=== PATIENT | female | born 1965 | race Caucasian/White ===

== ENCOUNTER → 2018-01-24 09:10 | Outpatient (CLI) | payer MEDICAID, SELFPAY ==
--- NOTE | 2018-01-24 09:23 | MRI_ITS ---
MR Spine Lumbar W/O Contrast INDICATION: LOW BACK PAIN, sharp shooting pain into legs and feet bilaterally, no relief with therapy COMPARISON: None TECHNIQUE: Multiplanar multisequence MRI examination of the lumbar spine without contrast FINDINGS: There is minimal anterolisthesis of L4 on L5, otherwise normal lumbar lordosis. Height of the vertebral bodies is preserved. Large hemangioma is present in T11. Conus is located at L1. There is normal distribution of the nerve roots of the cauda equina. T12-L1, L1-2, and L2-3 levels are unremarkable. L3-4 level demonstrates minimal disc bulging. No significant spinal canal or neuroforaminal narrowing. L4-L5 level demonstrates mild anterolisthesis with severe bilateral facet joint arthropathy/hypertrophy and thickening of the ligamentum flavum. Small amount of fluid is noted in the left facet joint. No evidence of bone marrow edema. There is mild spinal canal and bilateral neuroforaminal narrowing. L5-S1 level demonstrates degenerative disc disease and endplate degenerative changes with bilateral foraminal disc osteophyte formation resulting in mild bilateral foraminal narrowing. Spinal canal is not significantly narrowed. MRI/Spine Lumbar (Routine) IMPRESSION: Mild anterolisthesis of L4 on L5 with severe bilateral facet joint arthropathy/hypertrophy and mild spinal canal and bilateral neuroforaminal narrowing. L5-S1 degenerative disc disease and endplate degenerative changes with mild bilateral neural foraminal narrowing. at 1832 Reported and signed by: Carrie San MD Electronically Signed: Carrie San MD at 17:30 EST Tel , Service support ,
== END ==
PROVIDERS: Visit Provider Anesthesiology Pain Medicine
DX: M54.9 Dorsalgia, unspecified (principal); M79.604 Pain in right leg
CPT/HCPCS: 72148

== ENCOUNTER 2018-04-04 11:49 | Day surgery (SDC) | payer MEDICAID, SELFPAY ==
[2018-04-04 12:18] VITALS: BP 114/62; PULSE 58; RESP 16; TEMP 36.2; O2SAT 100; BMI 25.7
--- NOTE | 2018-04-04 14:35 | RAD_ITS ---
STUDY: X-RAY - LUMBAR SPINE REASON FOR EXAM: Female, 53 years old. Lumbar epidural TECHNIQUE: 1 fluoroscopic view view(s) of the lumbar spine were obtained. COMPARISON: None FINDINGS: Fluoroscopy was provided for a lumbar epidural procedure. RAD/Spine 1 View Any Level IMPRESSION: As above. Electronically Signed: Anish Crespo, at 19:58 EDT Tel , Service support ,
[2018-04-04] MEDS: Triamcinolone Acetonide 40 MG/ML Vial ×2 (14:50)
[2018-04-04 14:56] VITALS: BP 100/54; BP 114/62; PULSE 55; RESP 16; TEMP 36.2; O2SAT 95
[2018-04-04 15:00] VITALS: BP 101/56; BP 114/62; PULSE 55; RESP 16; O2SAT 96
[2018-04-04 15:05] VITALS: BP 111/61; BP 114/62; PULSE 55; RESP 16; O2SAT 97
[2018-04-04 15:12] VITALS: BP 114/62; BP 114/63; PULSE 55; RESP 16; TEMP 36.9; O2SAT 97
[2018-04-04 15:32] VITALS: BP 114/62
== END 2018-04-04 15:34 | disposition home or self-care (01) ==
LOC: SDC 11:50 → AC 11:57
PROVIDERS: Visit Provider Anesthesiology Pain Medicine
PROC: 3E0S3BZ Introduction of Anesthetic Agent into Epidural Space, Percutaneous Approach (ICD-10-PCS; CPT 62322; principal; 2018-04-04 13:55)
DX: M51.16 Intervertebral disc disorders with radiculopathy, lumbar region (principal); Z79.899 Other long term (current) drug therapy; Z79.82 Long term (current) use of aspirin; I25.2 Old myocardial infarction; I10 Essential (primary) hypertension; Z95.1 Presence of aortocoronary bypass graft; F17.200 Nicotine dependence, unspecified, uncomplicated; K21.9 Gastro-esophageal reflux disease without esophagitis; F41.9 Anxiety disorder, unspecified; F32.9 Major depressive disorder, single episode, unspecified; E07.9 Disorder of thyroid, unspecified
CPT/HCPCS: 62323; 64483; 72020; J7120

== ENCOUNTER → 2022-07-06 | Outpatient (CLI) | payer MEDICARE, MEDICAID, SELFPAY ==
--- NOTE | 2022-07-06 10:42 | MRI_ITS ---
STUDY: MRI LUMBAR SPINE WITHOUT CONTRAST REASON FOR EXAM: Female, 57 years old. RADICULOPATHY LUMBAR SPINE TECHNIQUE: Standardized fat and water weighted pulse sequences were obtained in the sagittal and axial planes. COMPARISON: MRI of the lumbar spine dated January 24, 2018 FINDINGS: Normal lumbar lordosis. There is no substantial scoliosis. Normal conus medullaris that terminates at the L1 level. L1-2: Normal endplates. Mild disc desiccation. Normal disc height and morphology. Normal bilateral facet joints. Normal central canal and bilateral lateral recesses. Normal bilateral intervertebral neural foramina. L2-3: Normal endplates. Mild disc desiccation. Normal disc height and morphology. Normal bilateral facet joints. Normal central canal and bilateral lateral recesses. Normal bilateral intervertebral neural foramina. L3-4: Normal endplates. Diffuse disc desiccation with mild posterior disc space narrowing and minimal annular bulging. Normal bilateral facet joints. Normal central canal and bilateral lateral recesses. Normal bilateral intervertebral neural foramina. L4-5: Normal endplates. Mild disc space narrowing with diffuse disc desiccation and minimal posterior annular bulging. Moderate facet joint hypertrophy and fluid distention contribute into mild central canal stenosis. Normal bilateral intervertebral neural foramina. Slight anterolisthesis of L4 and L5 of 2 to 3 mm. L5-S1: Moderate disc space narrowing and MODIC endplate degenerative signal. Diffuse disc spur complex. Normal bilateral facet joints. Normal central canal and bilateral lateral recesses. Normal bilateral intervertebral neural foramina. Normal visualized sacral ala. There is mild paraspinal muscular atrophy. Small sacral Tarlov cyst noted which is of no clinical significance. MRI/Spine Lumbar (Routine) IMPRESSION: 1. Multilevel degenerative changes, as described above. 2. Mild central canal stenosis at L4-L5. Electronically Signed: Bishop Jung MD at 11:56 EDT ,
== END | disposition home or self-care (01) ==
LOC: MRI 10:34
PROVIDERS: PCP General Practice; Referring Provider Anesthesiology Pain Medicine; Visit Provider Anesthesiology Pain Medicine
DX: M54.16 Radiculopathy, lumbar region (principal)
CPT/HCPCS: 72148

== ENCOUNTER → 2024-09-01 | Outpatient (CLI) | payer MEDICARE, MEDICAID, SELFPAY ==
--- NOTE | 2024-09-01 09:52 | RAD_ITS ---
HISTORY: LUMBAR RADICULOPATHY. TECHNIQUE: XR Spine Lumbar 2 or 3 Views. COMPARISON: 07/08/2013. FINDINGS: VERTEBRAE: Vertebral body heights preserved. Posterior elements appear intact. ALIGNMENT: 8 mm anterolisthesis of L4-5. INTERVERTEBRAL DISCS: Moderate intervertebral disc space narrowing and endplate change at L4-5 and L5-S1, progressed from prior. SOFT TISSUES: Right upper quadrant surgical clips. RAD/Lumbar Spine 2 or 3 Views IMPRESSION: No acute fracture or dislocation identified in the lumbar spine. Increased anterolisthesis of L4-5. Progression of degenerative change in the lower lumbar spine. Electronically Signed: Shruthi Nguyen MD at 8:37 EDT ,
== END | disposition home or self-care (01) ==
LOC: LAB 09:46 → RAD 09:52
PROVIDERS: PCP General Practice; Referring Provider Anesthesiology Pain Medicine; Visit Provider Anesthesiology Pain Medicine
DX: M54.16 Radiculopathy, lumbar region (principal)
CPT/HCPCS: 72100